=== PATIENT | female | born 1955 | race Caucasian/White ===

== ENCOUNTER 2018-01-23 17:44 | Inpatient (IN) | payer BC ==
[~2018-01-23] VITALS: Ht 160 cm; Wt 107.5 kg
[~2018-01-23 17:44] MED LIST: ASPIR 8181 MG PO; ATENOLOL50 MG PO; CLOPIDOGREL75 MG PO; ETODOLAC400 MG PO; MECLIZINE HCL12.5 MG PO; NICOTINE PATCH1 EAC5; SIMVASTATIN10 MG PO
[2018-01-23 18:50] LABS: BASOPHILS # (AUTO) 0.1 (0.0-0.1); BASOPHILS % 0.7 % (0.0-1.0); EOSINOPHILS # (AUTO) 0.1 (0.0-0.4); EOSINOPHILS % 1.3 % (0.0-6.0); HEMATOCRIT 44.2 % (34.2-44.1); HEMOGLOBIN 14.7 g/dL (12.0-16.0); LYMPHOCYTES # (AUTO) 3.3 (1.0-3.2); LYMPHOCYTES % 30.7 % (18.0-39.1); MEAN CORPUSCULAR HEMOGLOBIN 30.4 pg (28-32); MEAN CORPUSCULAR HGB CONC 33.3 g/dL (31-35); MEAN CORPUSCULAR VOLUME 91.3 fL (81-99); MONOCYTES # (AUTO) 0.6 (0.2-0.8); MONOCYTES % 5.5 % (4.4-11.3); NEUTROPHILS # (AUTO) 6.6 (2.1-6.9); NEUTROPHILS % 61.5 % (38.7-80.0); PLATELET COUNT 245 x10e3/uL (140-360); RED BLOOD COUNT 4.84 x10e6/uL (3.6-5.1); RED CELL DISTRIBUTION WIDTH 13.2 % (11.7-14.4)
[2018-01-23 19:05] LABS: ANION GAP 16.5 mmol/L (8-16); CALCIUM 9.2 mg/dL (8.4-10.2); CREATININE, SERUM 1.12 mg/dL (0.57-1.11); POTASSIUM 4.5 mmol/L (3.5-5.1)
[2018-01-23 19:13] LABS: CREATINE KINASE MB 1.6 ng/mL (0-5.0)
[2018-01-23] MEDS ORDERED: SODIUM CHLORIDE 0.9% 1000ML 1,000 ML IV ONE (19:15)
--- NOTE | 2018-01-23 22:05 | Diagnostic Imaging Report ---
EXAM: CT CHEST W INDICATION: Shortness of breath COMPARISON: None TECHNIQUE: Multidetector CT scanning of the chest was performed. Coronal and sagittal multiplanar reformations were obtained. PE protocol performed. IV Contrast: 100 cc Isovue-370 CTDIvol has been reviewed. It is below the limits set by the Radiation Protocol Committee (RPC). FINDINGS: LUNGS AND AIRWAYS: The trachea and major bronchi are unremarkable. Interlobular septal thickening and bilateral diffuse ground glass opacities. PLEURA: Trace bilateral pleural effusions. HEART, MEDIASTINUM, VESSELS: Mild cardiac enlargement. No abnormal pericardial effusion. His chronic changes of the thoracic aorta without aneurysm. No mediastinal mass or lymphadenopathy. No evidence of a pulmonary embolism. UPPER ABDOMEN: Partially visualized anterior upper abdominal diastases. Nodular thickening of the left adrenal gland. MUSCULOSKELETAL: No acute findings. IMPRESSION: Findings of congestive heart failure/fluid overload with cardiomegaly, pulmonary edema and trace bilateral pleural effusions. No evidence of a pulmonary embolism. Signed by: Dr. Juliet Uriarte M.D. on 01/23/2018 10:01 PM
[2018-01-23] MEDS ORDERED: SODIUM CHLORIDE 0.9% 50ML 50 ML ONE (22:25)
[2018-01-23] MEDS ORDERED: IOPAMIDOL 370 MG/ML 200 ML INFUS..BTL INJ ONE (22:26)
[2018-01-23] MEDS ORDERED: FUROSEMIDE INJ 10 MG/ML 4 ML VIAL IV ONE (22:30)
[2018-01-23] MEDS ORDERED: ASPIRIN 81 MG CHEW TAB PO ONE (22:45)
[2018-01-23] MEDS ORDERED: SODIUM CHLORIDE FLUSH 10 ML SYR INJ PRN (22:45)
--- OUTSIDE RECORDS SUMMARY | 2018-01-23 22:51 | XMS REPORT ---
[facility] Address Unknown Phone Unavailable Care Team Providers Care Python Web Developer Name Role Phone SHYLA SCHWARTZ Unavailable Unavailable Problems This patient has no known problems. Allergies, Adverse Reactions, Alerts This patient has no known allergies or adverse reactions. Medications This patient has no known medications. Results Test Description Test Time Test Comments Text Results Atomic Results Result Comments CT CHEST W [place] [address] Patient Name: MARAL PEREZ MR #: [id number] : 1955 Age/Sex: 62/F Req #: [id number] Adm Physician: Ordered by: SHYLA SCHWARTZ DO Report #: [id number] Location: ER Room/Bed: Procedure: [id number] CT/CT CHEST W Exam Date: Exam Time: REPORT STATUS: Signed EXAM: CT CHEST W INDICATION: Shortness of breath COMPARISON: None TECHNIQUE: Multidetector CT scanning of the chest was performed. Coronal and sagittal multiplanar reformations were obtained. PE protocol performed. IV Contrast: 100 cc Isovue-370 CTDIvol has been reviewed. It is below the limits set by the Radiation Protocol Committee (RPC) . FINDINGS: LUNGS AND AIRWAYS: The trachea and major bronchi are unremarkable. Interlobular septal thickening and bilateral diffuse ground glass opacities. PLEURA: Trace bilateral pleural effusions. HEART, MEDIASTINUM, VESSELS: Mild cardiac enlargement. No abnormal pericardial effusion. His chronic changes of the thoracic aorta without aneurysm. No mediastinal mass or lymphadenopathy. No evidence of a pulmonary embolism. UPPER ABDOMEN: Partially visualized anterior upper abdominal diastases. Nodular thickening of the left adrenal gland. MUSCULOSKELETAL : No acute findings. IMPRESSION: Findings of congestive heart failure/ fluid overload with cardiomegaly, pulmonary edema and trace bilateral pleural effusions. No evidence of a pulmonary embolism. Signed by: Dr. Leigh Ann Rapp M.D. on 01/23/2018 10:01 PM Dictated By: LEIGH ANN RAPP MD 00 Transcribed By : FERCHO on 01/23/182200 COPY TO: SHYLA SCHWARTZ DO
[2018-01-23] MEDS ORDERED: ASPIRIN 81 MG CHEW TAB ONE (23:15)
[2018-01-23] MEDS ORDERED: NICOTINE 21 MG/EA PATCH ONE (23:16)
[2018-01-23] MEDS: NICOTINE 21 MG/EA PATCH TOP SCH (23:23)
[2018-01-24] VITALS (9 sets, daily range): BP systolic 146–176; BP diastolic 74–101
[2018-01-24 03:45] LABS: CREATINE KINASE MB 1.8 ng/mL (0-5.0)
[2018-01-24 08:47] LABS: BASOPHILS # (AUTO) 0.1 (0.0-0.1); BASOPHILS % 0.5 % (0.0-1.0); EOSINOPHILS % 0.3 % (0.0-6.0); HEMATOCRIT 46.5 % (34.2-44.1); HEMOGLOBIN 15.4 g/dL (12.0-16.0); LYMPHOCYTES # (AUTO) 2.3 (1.0-3.2); LYMPHOCYTES % 22.7 % (18.0-39.1); MEAN CORPUSCULAR HEMOGLOBIN 29.7 pg (28-32); MEAN CORPUSCULAR HGB CONC 33.1 g/dL (31-35); MEAN CORPUSCULAR VOLUME 89.6 fL (81-99); MONOCYTES # (AUTO) 0.5 (0.2-0.8); MONOCYTES % 5.1 % (4.4-11.3); NEUTROPHILS # (AUTO) 7.2 (2.1-6.9); NEUTROPHILS % 71.1 % (38.7-80.0); PLATELET COUNT 264 x10e3/uL (140-360); RED BLOOD COUNT 5.19 x10e6/uL (3.6-5.1); RED CELL DISTRIBUTION WIDTH 13.2 % (11.7-14.4)
[2018-01-24] MEDS ORDERED: FUROSEMIDE INJ 10 MG/ML 4 ML VIAL IV SCH (09:00)
[2018-01-24 09:13] LABS: CREATINE KINASE MB 1.8 ng/mL (0-5.0)
[2018-01-24 10:15] LABS: ALBUMIN 3.8 g/dL (3.5-5.0); ANION GAP 16.9 mmol/L (8-16); CALCIUM 9.5 mg/dL (8.4-10.2); CREATININE, SERUM 1.18 mg/dL (0.57-1.11); POTASSIUM 3.9 mmol/L (3.5-5.1)
[2018-01-24] MEDS ORDERED: KETOROLAC TROMETHAMINE 30 MG/ML VIAL ONE (11:01)
[2018-01-24] MEDS ORDERED: KETOROLAC TROMETHAMINE 30 MG/ML VIAL IV ONE (11:30)
[2018-01-24 11:33] LABS: ANION GAP 16.7 mmol/L (8-16); CALCIUM 9.7 mg/dL (8.4-10.2); CREATININE, SERUM 1.21 mg/dL (0.57-1.11); POTASSIUM 3.7 mmol/L (3.5-5.1)
[2018-01-24] MEDS ORDERED: CLOPIDOGREL BISULFATE 75 MG TAB PO ONE (13:30)
[2018-01-24 15:09] LABS: CREATINE KINASE MB 1.4 ng/mL (0-5.0)
--- NOTE | 2018-01-24 15:31 | Diagnostic Imaging Report ---
EXAMINATION: CHEST 2 VIEWS INDICATION: \S\KWAN \[id number] \S\1450 \S\Y COMPARISON: Chest CT 01/23/2018 FINDINGS: PA and lateral views TUBES and LINES: None. LUNGS: Lungs are well inflated. Vascular congestion and mild interstitial edema. PLEURA: Trace pleural effusions. No pneumothorax. HEART AND MEDIASTINUM: The cardiomediastinal silhouette is unremarkable. Aortic arch calcifications. BONES AND SOFT TISSUES: There are degenerative changes in the thoracic spine. Soft tissues are unremarkable. UPPER ABDOMEN: No free air under the diaphragm. IMPRESSION: Persistent mild interstitial edema and trace pleural effusions. Signed by: DR. Aron Fields MD on 01/24/2018 3:27 PM
--- NOTE | 2018-01-24 16:06 | Consultation ---
DATE OF CONSULTATION: January 24, 2018 CARDIAC CONSULTATION REASON FOR CONSULTATION: Severe shortness of breath. HISTORY: This is a 62-year-old lady who is known to be heavy smoker of many years' duration. She does have definitive history of peripheral arterial vascular disease. She was seen and evaluated in [address] Martinez. Her cardiac evaluation based on abnormal stress test as per patient showed "muscle bridge, no severe blockage." She had bilateral iliac disease. She had in 2012 bilateral iliac stent placement. She had several procedures after that. She continued to be doing unwell regarding her peripheral arterial vascular disease. Her latest evaluation by Dr. Martinez was in December 2014. At that time, she had angiogram, which showed restenosis of the stents. Patient was referred to Dr. Veronica for aortobifemoral bypass surgery. This was done successfully. Patient's course complicated by bilateral groin infection and antibiotic treatment. Since that time, patient is "followed by Dr. Jackson." She does not like to see her home health caregiver. Apparently, she was in [place] with her daughter. She started having severe shortness of breath. She is not having any fever or chills. She came to the emergency room and urgent CT scan done showed no pulmonary embolism. Suggestion of volume overload. Her cardiac enzymes were normal. Her BNP is at 557. Her cardiac enzymes were normal. Her EKG is abnormal but no acute ST-elevation myocardial infarction. Cardiac consultation is obtained. The patient seems to be happier after she got some Lasix and other treatment. Her main problem now is cramping all over. She had pain killer and she is very comfortable now. She is still having shortness of breath, although is by far much less. She denied having any angina. Patient is really poor historian. Unfortunately, patient continued to smoke despite all her illnesses. She smokes now "less than a pack a day." She does have chronic smoker cough, chronic secretion whitish to greenish. She denied having any angina. Her shortness of breath seems to be acute after recent travel to [place]. Her CT scan is negative. There is no orthopnea. There is no paroxysmal nocturnal dyspnea. Patient does have does have easy fatigability. PAST MEDICAL HISTORY 1. Prior cardiac cath, as per patient is muscle bridge, as per note we found from 2015 50% stenosis of the right coronary artery. We were unable to find the cardiac cath on the PAC system. 2. Peripheral arterial vascular disease, status post several stenting from 2012 to 2015 by another team with subsequent aortobifemoral bypass surgery complicated by infection. All of these procedures done at this institution. 3. COPD. 4. Hypertension. 5. Heavy smoker. 6. Incisional abdominal hernias. 7. Vertigo. ALLERGIES: CODEINE AND PENICILLIN. HOME MEDICATIONS: As per record, patient should be on aspirin, atenolol, and Zocor, but she is poorly compliant. REVIEW OF SYSTEMS: Review of systems was done to all systems. Only pertinent positive and negative ones will be mentioned. GENERAL: Fatigue and malaise. CARDIAC: As per above. PULMONARY: As per above. GI: No hematemesis. No melena. : No hematuria. No dysuria. MUSCULOSKELETAL: Aches and pains. NEUROLOGIC: Anxiety. No headache. No seizure activity. HEMATOLOGICAL: Easy bruising but no bleeding. SOCIAL HISTORY: She is . She is a smoker. She is not alcohol drinker. FAMILY HISTORY: Father of CVA at age 82. Mother at age 79 with "brain aneurysm." Brother of liver cancer at age 42. One sister with back problems. Two healthy children. PHYSICAL EXAMINATION VITALS: Obese lady, height of 5 feet 3 inches, weight of 237 pounds, blood pressure 140/90, heart rate of 80, and respiratory rate of 18. HEENT: Pupils are reactive. NECK: No elevation of jugular venous pulsation. No bruit. CHEST: Decrease lungs expansion with crakles. HEART: PMI at the 5th left intercostal space. Normal 1st and 2nd heart sounds. ABDOMEN: Soft with good bowel sounds. No organomegaly. No abdominal bruit. Abdominal scar noted and incisional hernia is noted. EXTREMITIES: Decreased feet pulses. Scar both iliac femoral area. NEUROLOGIC: Nonfocal. LABORATORY AND DIAGNOSTIC DATA: Sodium 139, potassium 3.7, BUN of 13, and creatinine of 1.2. Hemoglobin of 15.4, hematocrit 46%, white blood cell count of 10, and platelet of 254. BNP of 557. CKs are normal. CT chest as per record. IMPRESSION AND PLAN 1. Severe shortness of breath. By history, it is more likely element of COPD pulmonary in nature. PE is ruled out. 2. Finding of congestive heart failure on CAT scan. BNP is at 557. 3. Peripheral arterial vascular disease. 4. Obesity. 5. High probability of coronary artery disease, but prior cath showed no severe disease but patient is a smoker and this procedure was 3 years ago, so progression of disease is possible. Cardiac-valenzuela, my recommendation will be to treat the acute presentation. We will get an echocardiogram. We will maintain patient on aspirin. We will add Plavix. We will check lipid profile. Further steps to be done as needed. Job#: [id number] JENIFFER MASON
--- NOTE | 2018-01-24 16:19 | History and Physical ---
CHIEF COMPLAINT: Shortness of breath. HISTORY OF PRESENT ILLNESS: This is a 62-year-old white woman who presented to [facility] Emergency Room with a 2-day history of worsening shortness of breath, particularly with exertion. The patient underwent a CT of the chest with contrast in the emergency room that revealed findings consistent with congestive heart failure as well as cardiomegaly and trace bilateral pleural effusions. The CT of the chest with contrast did not reveal any evidence of pulmonary embolism. The patient had cardiac enzymes drawn in the emergency room, which were negative. The patient's B-type natriuretic peptide level was elevated at 557. The patient's BUN and creatinine on admission were 15 and 1.12 respectively. Her main complaint today is intense muscle cramping, which the patient blames on the intravenous furosemide. REVIEW OF SYSTEMS GENERAL: Weight has been stable. No fever or chills. The patient states that she has had diaphoresis for the past couple of days. HEENT: No headache. No vision changes. CARDIOVASCULAR AND RESPIRATORY: No chest pain. Complains of worsening shortness of breath, particularly with exertion, over the last 2 to 3 days. Denies any palpitations. GI: No nausea, vomiting, or constipation. : No dysuria. No hematuria. No incontinence. NEUROMUSCULAR: Complains of intense muscle spasms that occurred today when she started receiving intravenous furosemide. PAST MEDICAL HISTORY 1. Peripheral arterial disease. 2. Tobacco abuse. 3. Obesity. SURGICAL HISTORY 1. Right common iliac and left iliac arterial stents placed in 2015. 2. Lower extremity arterial angioplasty in 2014. 3. Aorto-bifemoral bypass surgery in 2015. FAMILY HISTORY: Father of stroke. Mother of a cerebral aneurysm. SOCIAL HISTORY: This woman is , and she lives with her . She is retired. The patient is a tobacco smoker. The patient denies any alcohol use. MEDICATIONS: None. ALLERGIES 1. PENICILLIN. 2. CODEINE. PHYSICAL EXAMINATION GENERAL: She is awake, alert, fully oriented. She is in mild distress because of muscle cramping. She does complain of shortness of breath, but no chest pain. VITAL SIGNS: Height 5 feet 3 inches, weight 235 pounds, BMI 41. Blood pressure is 167/97, pulse 90, respiratory rate 24, oxygen saturation 92% on room air. Temperature is 96.8. INTEGUMENT: Skin is warm but diaphoretic. No jaundice or pallor. HEENT: Anicteric sclerae with moist mucous membranes. NECK: Supple. No evidence of jugular venous distention. CARDIOVASCULAR: Distant heart sounds. Tachycardic heart rate, regular rhythm. LUNGS: Fine crackles bilaterally. ABDOMEN: Obese, benign. EXTREMITIES: Trace edema in the lower extremities. DIAGNOSES 1. Osadg-uw-mfcvrve diastolic congestive heart failure. 2. Peripheral arterial disease. 3. Coronary artery disease, likely. 4. Tobacco abuse. 5. Extreme obesity. Body mass index 41. PLAN 1. Consult cardiology. 2. Highly recommend tobacco cessation. 3. Intravenous furosemide. 4. Check electrolytes because of the patient's muscle cramping. 5. Order 2-D echocardiogram. I spent 45 minutes in the care of this patient. Job#: [id number]
[2018-01-24] MEDS: ACETAMINOPHEN 325 MG TAB PO PRN (16:39)
[2018-01-24] MEDS: TRAMADOL HCL 50 MG TAB PO PRN (18:24)
[2018-01-24] MEDS: NICOTINE 21 MG/EA PATCH TOP SCH (20:34)
[2018-01-25] VITALS: BP 144/76
[2018-01-25 04:00] VITALS: BP 158/80
[2018-01-25 07:08] LABS: BASOPHILS % 0.5 % (0.0-1.0); EOSINOPHILS # (AUTO) 0.1 (0.0-0.4); EOSINOPHILS % 0.9 % (0.0-6.0); HEMATOCRIT 47.3 % (34.2-44.1); HEMOGLOBIN 15.7 g/dL (12.0-16.0); LYMPHOCYTES % 34.4 % (18.0-39.1); MEAN CORPUSCULAR HEMOGLOBIN 30.1 pg (28-32); MEAN CORPUSCULAR HGB CONC 33.2 g/dL (31-35); MEAN CORPUSCULAR VOLUME 90.6 fL (81-99); MONOCYTES # (AUTO) 0.7 (0.2-0.8); MONOCYTES % 7.8 % (4.4-11.3); NEUTROPHILS % 56.1 % (38.7-80.0); PLATELET COUNT 271 x10e3/uL (140-360); RED BLOOD COUNT 5.22 x10e6/uL (3.6-5.1); RED CELL DISTRIBUTION WIDTH 13.2 % (11.7-14.4)
[2018-01-25 07:38] LABS: CHOL/HDL RATIO 6.5 (3.0-3.6)
[2018-01-25 07:42] LABS: ALBUMIN 3.6 g/dL (3.5-5.0); ALBUMIN/GLOBULIN RATIO 0.9 (0.8-2.0); CALCIUM 9.1 mg/dL (8.4-10.2); CREATININE, SERUM 1.23 mg/dL (0.57-1.11)
[2018-01-25] MEDS: CLOPIDOGREL BISULFATE 75 MG TAB PO SCH (07:49)
[2018-01-25] MEDS: FUROSEMIDE INJ 10 MG/ML 4 ML VIAL IV SCH (07:49)
[2018-01-25 07:50] VITALS: BP 149/74
[2018-01-25 08:02] LABS: THYROID STIMULATING HORMONE 0.859 uIU/mL (0.350-4.940)
[2018-01-25] MEDS ORDERED: LOSARTAN POTASSIUM 100 MG TAB PO SCH (10:45)
[2018-01-25] MEDS: TRAMADOL HCL 50 MG TAB PO PRN (12:21)
[2018-01-25 12:22] VITALS: BP 155/85
[2018-01-25] MEDS: CARVEDILOL 12.5 MG TAB PO SCH (16:08)
[2018-01-25 16:59] VITALS: BP 154/83
[2018-01-25] MEDS: ONDANSETRON HCL 4 MG ORAL DISINTEGRATING TAB PO PRN ×2 (17:16→22:19)
[2018-01-25 20:00] VITALS: BP 160/90
[2018-01-25] MEDS: NICOTINE 21 MG/EA PATCH TOP SCH (20:57)
[2018-01-25] MEDS ORDERED: ATORVASTATIN 40 MG TAB PO SCH (21:00)
[2018-01-26] VITALS: BP 146/82
[2018-01-26 04:00] VITALS: BP 145/86
[2018-01-26] MEDS: ACETAMINOPHEN 325 MG TAB PO PRN (05:35)
[2018-01-26 06:57] LABS: BASOPHILS % 0.4 % (0.0-1.0); EOSINOPHILS # (AUTO) 0.1 (0.0-0.4); EOSINOPHILS % 0.5 % (0.0-6.0); HEMATOCRIT 47.4 % (34.2-44.1); HEMOGLOBIN 15.4 g/dL (12.0-16.0); LYMPHOCYTES % 30.5 % (18.0-39.1); MEAN CORPUSCULAR HEMOGLOBIN 29.6 pg (28-32); MEAN CORPUSCULAR HGB CONC 32.5 g/dL (31-35); MEAN CORPUSCULAR VOLUME 91.2 fL (81-99); MONOCYTES # (AUTO) 0.7 (0.2-0.8); MONOCYTES % 6.7 % (4.4-11.3); NEUTROPHILS # (AUTO) 6.2 (2.1-6.9); NEUTROPHILS % 61.6 % (38.7-80.0); PLATELET COUNT 283 x10e3/uL (140-360); RED CELL DISTRIBUTION WIDTH 12.9 % (11.7-14.4)
[2018-01-26 07:18] LABS: ALBUMIN 3.7 g/dL (3.5-5.0); ALBUMIN/GLOBULIN RATIO 0.9 (0.8-2.0); ANION GAP 14.9 mmol/L (8-16); CALCIUM 9.5 mg/dL (8.4-10.2); CREATININE, SERUM 1.25 mg/dL (0.57-1.11); POTASSIUM 3.9 mmol/L (3.5-5.1)
[2018-01-26 07:20] VITALS: BP 141/68
[2018-01-26] MEDS ORDERED: LOSARTAN POTASSIUM 25 MG TAB PO SCH (09:00)
[2018-01-26] MEDS: FUROSEMIDE INJ 10 MG/ML 4 ML VIAL IV SCH (09:20)
[2018-01-26] MEDS: CLOPIDOGREL BISULFATE 75 MG TAB PO SCH (09:20)
[2018-01-26] MEDS: CARVEDILOL 12.5 MG TAB PO SCH (09:20)
[2018-01-26 10:24] VITALS: BP 141/68
[2018-01-26 13:04] VITALS: BP 133/85
[2018-01-26] MEDS ORDERED: CARVEDILOL 12.5 MG TAB PO SCH (17:00)
[2018-01-27] MEDS ORDERED: FUROSEMIDE 40 MG TAB PO SCH (09:00)
== END 2018-01-26 15:01 | disposition home or self-care (01) | DRG 292 ==
LOC: ER 17:44 → ERHOLD 22:48 → MED/SURG 01-24 00:50
DX: I11.0 Hypertensive heart disease with heart failure (principal); J44.9 Chronic obstructive pulmonary disease, unspecified; I50.23 Acute on chronic systolic (congestive) heart failure; I25.10 Atherosclerotic heart disease of native coronary artery without angina pectoris; E66.01 Morbid (severe) obesity due to excess calories; Z68.41 Body mass index [BMI] 40.0-44.9, adult; I73.9 Peripheral vascular disease, unspecified; Z88.5 Allergy status to narcotic agent; Z88.0 Allergy status to penicillin; F17.210 Nicotine dependence, cigarettes, uncomplicated; E78.5 Hyperlipidemia, unspecified; E78.1 Pure hyperglyceridemia; E11.9 Type 2 diabetes mellitus without complications
CPT/HCPCS: 36415; 71046; 71260; 80048; 80053; 80061; 82550; 82553; 82948; 83735; 83880; 84443; 84484; 85025; 93005; 93306; 99284; J1885; J1940; J7030; Q9967